=== PATIENT | female | born 1970 | race Hispanic/Latino ===

== ENCOUNTER 2017-09-26 22:27 | Emergency (ER) | payer OTHER ==
[2017-09-26] MEDS ORDERED: DiphenhydrAMINE 50 mg/ml Inj IVP STA ×2 (23:05→23:28)
[2017-09-26] MEDS ORDERED: DiphenhydrAMINE 50 mg/ml Inj ONE (23:07)
--- NOTE | 2017-09-27 00:21 | ED PDOC ---
HPI: Allergic Reaction Time Seen by Provider: 09/26/17 22:50 Chief Complaint (Nursing): Allergic Reaction Chief Complaint (Provider): Allergic Reaction History Per: Patient History/Exam Limitations: no limitations Onset/Duration Of Symptoms: Intermittent Episodes Current Symptoms Are (Timing): Still Present Associated Symptoms: Swelling (face, lips, and tongue), Itching Additional Complaint(s): 47 y/o female with no past medical history, presents to the ED complaining of intermittent allergic reactions that exacerbates with the cold weather, onset of 3 weeks. Just prior to arrival, patient was walking her dog in the cold and her face, and lips promptly began to swell. Patient reports of visiting the [facility] earlier today where she was given a prescription for steroids to combat the attacks. Of note, when she had suffered from previous attacks, she complained of feeling shortness of breath and wheezing, so her doctor had given her an inhaler; she also reports of taking Benadryl prior to arrival. Past Medical History Reviewed: Historical Data, Nursing Documentation, Vital Signs Vital Signs: Last Vital Signs Temp 97.2 F L 09/26/17 22:29 Pulse 106 H 09/26/17 22:29 Resp 17 09/26/17 22:29 BP 116/94 H 09/26/17 22:29 Pulse Ox 97 09/26/17 22:29 - Medical History PMH: No Chronic Diseases - Surgical History Other surgeries: Foot Surgery - Family History Family History: States: Unknown Family Hx - Social History Current smoker - smoking cessation education provided: No Alcohol: Social (3x a week) Drugs: Denies - Allergies Allergies/Adverse Reactions: Allergies Allergy/AdvReac Type Severity Reaction Status Date / Time mold Allergy Intermediate SWELLING Verified 09/26/17 22:34 tree and shrub pollen Allergy Intermediate swelling Verified 09/26/17 22:34 and rash cat dander Allergy Mild SWELLING Verified 09/26/17 22:34 dog dander Allergy Mild SWELLING Verified 09/26/17 22:34 Review of Systems ROS Statement: Except As Marked, All Systems Reviewed And Found Negative Constitutional: Positive for: Other (Face Swelling) ENT: Positive for: Mouth Swelling (lips and tongue) Respiratory: Positive for: Shortness of Breath Physical Exam - Reviewed Nursing Documentation Reviewed: Yes Vital Signs Reviewed: Yes - Physical Exam Appears: Positive for: No Acute Distress Head Exam: Positive for: ATRAUMATIC Skin: Positive for: Normal Color, Warm Eye Exam: Positive for: Normal appearance, EOMI, PERRL ENT: Positive for: Other (Face Swelling, more prominent on the left side) Neck: Positive for: Normal, Painless ROM, Supple Cardiovascular/Chest: Positive for: Regular Rate, Rhythm. Negative for: Murmur Respiratory: Positive for: Normal Breath Sounds. Negative for: Respiratory Distress Neurologic/Psych: Positive for: Alert, Oriented - ECG O2 Sat by Pulse Oximetry: 97 (RA) Pulse Ox Interpretation: Normal Disposition - Clinical Impression Clinical Impression: Allergic reaction - Patient ED Disposition Is Patient to be Admitted: No - Disposition Disposition: Routine/Home Disposition Time: 01:40 Condition: IMPROVED Additional Instructions: follow up with your ENT doctor within one week take benadryl as needed, and fill the steroids prescription to take as instructed return to the ED with any worsening or concerning symptoms. Instructions: Allergies (ED), General Allergic Reaction (ED) Forms: incuBET ([place]) Medical Decision Making Medical Decision Making: Time: --23:05 Impression: --47 y/o female with an Allergic Reaction Plan: --Benadryl 25mg IVP --methylprednisolone 125mg IVP Reassess --1:55 Patient was obsevred in the ER. reevaluated and provider finds that the patient is feeling better and swelling decreased is no longer tachycardic. Patient is ready to be discharged home. pt instructed to take steroids that was given at home. Scribe Attestation: Documented by Nba Maier acting as a scribe for José Henderson MD. Provider Attestation: All medical record entries made by the Scribe were at my direction and personally dictated by me. I have reviewed the chart and agree that the record accurately reflects my personal performance of the history, physical exam, medical decision making, and the department course for this patient. I have also personally directed, reviewed, and agree with the discharge instructions and disposition.
[2017-09-27 02:47] VITALS: BP 120/80; PULSE 96; RESP 16; TEMP 97.6
[2017-09-28 12:28] VITALS: O2SAT 97
== END 2017-09-27 00:30 | disposition home or self-care (01) ==
LOC: H.ER 22:27
DX: T78.40XA Allergy, unspecified, initial encounter (principal); R06.02 Shortness of breath
CPT/HCPCS: 96374; 96375; 99282; J1200; J2930